=== PATIENT | female | born 1935 | race Caucasian/White ===

== ENCOUNTER → 2017-08-09 | Outpatient (CLI) | payer OTHER ==
[~2017-08-09] MED LIST: AMLO10TA2 PO; ASPI-555 PO; CALC600T12 PO; CHOL200013 PO; CLOB30CR5 TP; CYAN-35 PO; DENO60DI SQ; HYDR25TA PO; IRON PO; LACT1CAP78 PO; LATANOPROST OU; LEVO200T10 PO; MAGN250T10 PO; POTA-9 PO; SIMV20TA6 PO; TUMERIC PO; ZINC PO; [UNRECOGNIZED DRUG - OTHER] PO
== END | disposition home or self-care (01) ==
LOC: OIH 11:38
PROVIDERS: ATTEND Internal Medicine
DX: J44.9 Chronic obstructive pulmonary disease, unspecified (principal); I51.7 Cardiomegaly
CPT/HCPCS: 71046

== ENCOUNTER 2018-09-13 08:48 | Day surgery (SDC) | payer OTHER ==
[~2018-09-13] VITALS: Ht 162.6 cm; Wt 97.5 kg
[2018-09-13] VITALS (7 sets, daily range): BP systolic 104–136; BP diastolic 37–74
[~2018-09-13 08:48] MED LIST changes: -AMLO10TA2 PO; +AMLO10TA7 PO
[2018-09-13] MEDS ORDERED: LIDOCAINE HCL 2% 20ML ONE (10:00)
[2018-09-13] MEDS ORDERED: SODIUM CHLORIDE 0.9% 1000ML 1,000 ML IV ONE (10:03)
== END 2018-09-13 10:55 | disposition home or self-care (01) ==
LOC: DAH 08:48 → ENDO 08:48
PROVIDERS: ATTEND Internal Medicine
DX: K57.30 Diverticulosis of large intestine without perforation or abscess without bleeding (principal); K92.1 Melena; J45.909 Unspecified asthma, uncomplicated; I10 Essential (primary) hypertension; E03.9 Hypothyroidism, unspecified; M81.0 Age-related osteoporosis without current pathological fracture; M06.9 Rheumatoid arthritis, unspecified; Z98.890 Other specified postprocedural states; Z90.710 Acquired absence of both cervix and uterus; Z98.49 Cataract extraction status, unspecified eye; Z79.899 Other long term (current) drug therapy; Z68.37 Body mass index [BMI] 37.0-37.9, adult; D64.9 Anemia, unspecified; K64.9 Unspecified hemorrhoids; G47.33 Obstructive sleep apnea (adult) (pediatric); E66.9 Obesity, unspecified; E07.9 Disorder of thyroid, unspecified
CPT/HCPCS: 45331; 88305; A4606; J3490; J7030

== ENCOUNTER 2019-04-04 08:50 | Emergency (ER) | payer OTHER ==
[~2019-04-04 08:50] MED LIST changes: -HYDR25TA PO; +SIMV-43 PO; -SIMV20TA6 PO
[2019-04-04] MEDS ORDERED: TETRACAINE HCL 0.5% 4 ML OPHTH SOLN ONE (09:36)
[2019-04-04 09:43] LABS: BASOPHILS % (AUTO) 0.6 % (0.0-5.0); EOSINOPHILS % (AUTO) 2.4 % (0.0-8.0); HEMATOCRIT 40.6 % (36-48); LYMPHOCYTES % (AUTO) 24.9 % (21.0-51.0); MEAN CORPUSCULAR HEMOGLOBIN 30.3 pg (27.0-33.0); MEAN CORPUSCULAR HGB CONC 33.8 g/dL (32.0-36.0); MEAN CORPUSCULAR VOLUME 89.7 fL (79-99); MONOCYTES % (AUTO) 6.5 % (3.0-13.0); NEUTROPHILS % (AUTO) 65.6 % (40.0-77.0); PLATELET COUNT (AUTO) 211 K/uL (130-400); RED BLOOD CELL COUNT(AUTO) 4.52 MIL/uL (4.00-5.50); RED CELL DISTRIBUTION WIDTH 20.1 % (11.0-15.5); WHITE BLOOD COUNT (AUTO) 6.6 K/uL (4.8-10.8)
[2019-04-04 09:54] LABS: CREATININE 0.8 mg/dL (0.5-1.5); POTASSIUM 3.7 mmol/L (3.5-5.1)
[2019-04-04 09:59] LABS: ALBUMIN 3.5 g/dL (3.5-5.0); BILIRUBIN,DIRECT 0.1 mg/dL (0.0-0.3); BILIRUBIN,TOTAL 0.5 mg/dL (0.2-1.0); TOTAL PROTEIN, SERUM 7.3 g/dL (6.0-8.3)
[2019-04-04 10:09] LABS: INR 0.99 (0.85-1.15); PARTIAL THROMBOPLASTIN TIME 27.1 SEC (26.3-35.5); PROTHROMBIN TIME 10.4 SEC (9.6-11.6)
[2019-04-04 10:44] LABS: APPEARANCE,URINE Clear (CLEAR); BILIRUBIN,URINE Negative (NEGATIVE); COLOR,URINE Yellow (YELLOW); GLUCOSE, URINE (UA) Negative (NEGATIVE); KETONES,URINE Negative (NEGATIVE); LEUKOCYTE ESTERASE ,URINE Negative (NEGATIVE); NITRATE,URINE Negative (NEGATIVE); OCCULT BLOOD,URINE Negative (NEGATIVE); PH,URINE 5.5 (5.0-8.0); PROTEIN,URINE Negative (NEGATIVE); UROBILINOGEN,URINE 0.2 mg/dL (0.2-1.0)
== END 2019-04-04 12:44 | disposition home or self-care (01) ==
LOC: EDH 08:50
DX: R51 Headache (principal); I10 Essential (primary) hypertension; M06.9 Rheumatoid arthritis, unspecified; M32.9 Systemic lupus erythematosus, unspecified; M81.0 Age-related osteoporosis without current pathological fracture; Z90.710 Acquired absence of both cervix and uterus; Z90.49 Acquired absence of other specified parts of digestive tract; Z98.890 Other specified postprocedural states; Z91.041 Radiographic dye allergy status; Z88.8 Allergy status to other drugs, medicaments and biological substances
CPT/HCPCS: 36415; 70450; 80048; 80076; 81003; 85025; 85610; 85651; 85730; 87804

== ENCOUNTER 2020-12-10 16:14 | Emergency (ER) | payer OTHER ==
[~2020-12-10] VITALS: Ht 162.6 cm; Wt 95.3 kg
[~2020-12-10 16:14] MED LIST changes: +AMLO-258 PO; -AMLO10TA7 PO; -ASPI-555 PO; +ASPI-556 PO; +CALC-1125 PO; -CALC600T12 PO
[2020-12-10 16:34] VITALS: BP 174/75
[2020-12-10 18:30] VITALS: BP 153/77
[2020-12-10] MEDS ORDERED: SOLU-MEDROL 125MG VIAL IM ONE (19:00)
[2020-12-10 19:30] VITALS: BP 164/68
[2020-12-10 20:53] VITALS: BP 148/82
== END 2020-12-10 20:58 | disposition home or self-care (01) ==
LOC: EDH 16:14
DX: S29.012A Strain of muscle and tendon of back wall of thorax, initial encounter (principal); S69.92XA Unspecified injury of left wrist, hand and finger(s), initial encounter; E66.9 Obesity, unspecified; Z79.899 Other long term (current) drug therapy; Z79.82 Long term (current) use of aspirin; Z88.8 Allergy status to other drugs, medicaments and biological substances; Z88.5 Allergy status to narcotic agent; Z91.041 Radiographic dye allergy status; W17.89XA Other fall from one level to another, initial encounter; Y93.89 Activity, other specified; Y92.89 Other specified places as the place of occurrence of the external cause; Y99.8 Other external cause status
CPT/HCPCS: 71045; 73100; 96372; 99285; J2930

== ENCOUNTER 2022-03-08 12:10 | Observation (INO) | payer OTHER ==
[~2022-03-08] VITALS: Ht 165.1 cm; Wt 77.5 kg
[~2022-03-08 12:10] MED LIST changes: +POTA-200 PO; -POTA-9 PO
[2022-03-08 12:40] LABS: BASOPHILS % (AUTO) 0.3 % (0.0-5.0); EOSINOPHILS % (AUTO) 0.4 % (0.0-8.0); HEMATOCRIT 42.2 % (36-48); LYMPHOCYTES % (AUTO) 9.7 % (21.0-51.0); MEAN CORPUSCULAR HEMOGLOBIN 32.1 pg (27.0-33.0); MEAN CORPUSCULAR HGB CONC 33.9 g/dL (32.0-36.0); MEAN CORPUSCULAR VOLUME 94.6 fL (79-99); MONOCYTES % (AUTO) 4.4 % (3.0-13.0); NEUTROPHILS % (AUTO) 84.8 % (40.0-77.0); PLATELET COUNT (AUTO) 224 K/uL (130-400); RED BLOOD CELL COUNT(AUTO) 4.46 MIL/uL (4.00-5.50); RED CELL DISTRIBUTION WIDTH 13.2 % (11.0-15.5); WHITE BLOOD COUNT (AUTO) 11.4 K/uL (4.8-10.8)
[2022-03-08 12:55] LABS: CARBON DIOXIDE 31 mmol/L (21-32); CHLORIDE 101 mmol/L (101-111); CREATININE 0.8 mg/dL (0.5-1.5); GLOMERULAR FILTR. RATE CALC 72 mL/min (>60); GLUCOSE,RANDOM 150 mg/dL (70-105); POTASSIUM 3.3 mmol/L (3.5-5.1); SODIUM SERUM 140 mmol/L (136-145); UREA NITROGEN, BLOOD 21 mg/dL (7-18)
[2022-03-08] MEDS ORDERED: ONDANSETRON 4MG INJ IVP ONE (13:00)
[2022-03-08] MEDS ORDERED: MAG/ALUM/SIMETH 30 ML UDCUP PO ONE (13:00)
[2022-03-08] MEDS ORDERED: FAMOTIDINE 20MG VIAL IV ONE (13:00)
[2022-03-08] MEDS ORDERED: DICYCLOMINE HCL 10 MG/5 ML ML PO ONE (13:00)
[2022-03-08 13:01] LABS: ALANINE AMINOTRANSFERASE 26 U/L (12-78); ALBUMIN 3.8 g/dL (3.5-5.0); ASPARTATE AMINOTRANSFERASE 20 U/L (10-37); LIPASE 63 U/L (114-286); TOTAL PROTEIN, SERUM 7.6 g/dL (6.0-8.3)
[2022-03-08 13:13] LABS: CRP QUANTITATIVE < 2.00 mg/L (0.00-9.0)
[2022-03-08] MEDS ORDERED: POTASSIUM BICARB/CIT AC 25 MEQ TABLET.EFF PO ONE (13:30)
[2022-03-08] MEDS ORDERED: HYDROMORPHONE 0.5 MG SYG (0.5MG/0.5ML) IVP PRN ×2 (14:30)
[2022-03-08] MEDS ORDERED: ACETAMINOPHEN 325 MG TAB PO PRN ×2 (14:30)
[2022-03-08] MEDS ORDERED: ONDANSETRON 4MG INJ IV PRN (14:30)
[2022-03-08] MEDS: FAMOTIDINE 20MG VIAL IV SCH (14:31)
[2022-03-08 14:49] LABS: INR 1.03 (0.85-1.15); PROTHROMBIN TIME 11.2 SEC (9.6-11.6)
[2022-03-08 14:50] LABS: PARTIAL THROMBOPLASTIN TIME 27.9 SEC (26.3-35.5)
[2022-03-08 14:51] LABS: PHOSPHORUS 3.4 mg/dL (2.5-4.9)
[2022-03-08] MEDS: 0.9%NACL 1000ML 1,000 ML IV SCH (15:27)
[2022-03-08 16:40] VITALS: BP 130/53
[2022-03-08] MEDS ORDERED: POTASSIUM CHLORIDE 20MEQ/100ML 100 ML IV PRN ×2 (18:30→20:00)
[2022-03-08] MEDS ORDERED: LIDOCAINE HCL-MPF 1% 2ML VIAL IV PRN ×2 (18:30→20:00)
[2022-03-08] MEDS ORDERED: KCL 20 MEQ ERTAB PO ONE (19:59)
[2022-03-08] MEDS ORDERED: POTASSIUM CHLORIDE 10% ELIXIR 20 MEQ/15 ML UDCUP PO PRN (20:00)
[2022-03-08 20:26] LABS: APPEARANCE,URINE CLEAR (CLEAR); BILIRUBIN,URINE NEGATIVE (NEGATIVE); COLOR,URINE LIGHT-YELLOW (YELLOW); GLUCOSE, URINE (UA) NEGATIVE (NEGATIVE); KETONES,URINE NEGATIVE (NEGATIVE); LEUKOCYTE ESTERASE ,URINE 500 Leu/uL (NEGATIVE); NITRATE,URINE NEGATIVE (NEGATIVE); OCCULT BLOOD,URINE NEGATIVE (NEGATIVE); PH,URINE 6.5 (5.0-8.0); PROTEIN,URINE NEGATIVE (NEGATIVE); UROBILINOGEN,URINE 0.2 mg/dL (0.2-1.0)
[2022-03-08 20:38] VITALS: BP 123/49
[2022-03-08 20:57] LABS: MUCUS,URINE RARE LPF (None Seen); SQUAMOUS EPITHELIAL CELL,UR RARE /HPF (0-2); WBC,URINE 26-50 /HPF (0-1); YEAST,URINE BUDDING FEW /HPF (None Seen)
[2022-03-08] MEDS ORDERED: ZOSYN 3.375GM+NS 50ML 50 ML IV SCH ×2 (21:00)
[2022-03-08] MEDS ORDERED: HYDR12.54 PO (22:58)
[2022-03-08] MEDS ORDERED: ATOR40TA71 PO (22:58)
[2022-03-08] MEDS ORDERED: LEVO150T11 PO (22:58)
[2022-03-08] MEDS ORDERED: TURM1CAP PO (22:58)
[2022-03-08] MEDS ORDERED: LATA7.5D OU (22:58)
[2022-03-08] MEDS ORDERED: VITA-164 PO (22:58)
[2022-03-08] MEDS ORDERED: CRANBERRY D MANNOSE PO (22:58)
[2022-03-08] MEDS ORDERED: AMLO-257 PO (22:58)
[2022-03-08] MEDS ORDERED: CALC-1220 PO (22:58)
[2022-03-08] MEDS ORDERED: FERR-72 PO (22:58)
[2022-03-08] MEDS ORDERED: CARB10DR2 OU (22:58)
[2022-03-08] MEDS: KCL 20 MEQ ERTAB PO PRN (23:28)
[2022-03-09 00:19] VITALS: BP 126/54
[2022-03-09] MEDS: KCL 20 MEQ ERTAB PO PRN ×2 (01:24→05:10)
[2022-03-09 03:33] VITALS: BP 123/57
[2022-03-09 04:36] LABS: CREATININE 0.8 mg/dL (0.5-1.5); MAGNESIUM 2.1 mg/dL (1.80-2.40); POTASSIUM 3.7 mmol/L (3.5-5.1)
[2022-03-09] MEDS: 0.9%NACL 1000ML 1,000 ML IV SCH ×2 (05:10→09:28)
[2022-03-09 07:30] VITALS: BP 119/55
[2022-03-09] MEDS ORDERED: ENOXAPARIN SODIUM 40 MG/0.4 ML SYRINGE SQ SCH (09:00)
[2022-03-09] MEDS: FAMOTIDINE 20MG VIAL IV SCH (09:28)
[2022-03-09 11:00] VITALS: BP 135/55
[2022-03-09] MEDS ORDERED: ATORVASTATIN 40 MG TABLET PO SCH (21:00)
[2022-03-09] MEDS ORDERED: LATANOPROST 2.5 ML DROPS OU SCH (21:00)
[2022-03-09] MEDS ORDERED: ARTIFICAL TEARS SOL 15 ML OU SCH (21:00)
[2022-03-10] MEDS ORDERED: LEVOTHYROXINE 150 MCG TABLET PO SCH (07:30)
[2022-03-10] MEDS ORDERED: POTASSIUM CHLORIDE 10MEQ SR TAB PO SCH (09:00)
[2022-03-10] MEDS ORDERED: ASPIRIN 81 MG EC TAB PO SCH (09:00)
== END 2022-03-09 17:45 | disposition home or self-care (01) ==
LOC: EDH 12:10 → EDBD 12:10 → EDHIP 14:17 → INTOOBSV 14:17 → 4CH 16:51
PROVIDERS: ADMIT Internal Medicine; ATTEND Internal Medicine
DX: K56.600 Partial intestinal obstruction, unspecified as to cause (principal); Z20.822 Contact with and (suspected) exposure to COVID-19; D72.829 Elevated white blood cell count, unspecified; K57.90 Diverticulosis of intestine, part unspecified, without perforation or abscess without bleeding; J45.909 Unspecified asthma, uncomplicated; E11.65 Type 2 diabetes mellitus with hyperglycemia; E87.6 Hypokalemia; E89.0 Postprocedural hypothyroidism; I10 Essential (primary) hypertension; G43.909 Migraine, unspecified, not intractable, without status migrainosus; K21.9 Gastro-esophageal reflux disease without esophagitis; M06.9 Rheumatoid arthritis, unspecified; M32.9 Systemic lupus erythematosus, unspecified; M35.00 Sjogren syndrome, unspecified; M41.9 Scoliosis, unspecified; M45.9 Ankylosing spondylitis of unspecified sites in spine; Z90.710 Acquired absence of both cervix and uterus; M81.0 Age-related osteoporosis without current pathological fracture; Z79.82 Long term (current) use of aspirin; Z88.0 Allergy status to penicillin; Z79.899 Other long term (current) drug therapy; Z86.73 Personal history of transient ischemic attack (TIA), and cerebral infarction without residual deficits
CPT/HCPCS: 96374; 96361 ×2; 96375; 99285; 83735 ×2; 84100; 84484; 80053; 83690; 85025; 85610; 85730; 87077; 87088; 87186; 86140; 81001; 36415 ×2; 87635; 71045; 74176; 93005; 96376; 96372; 84443; 83540; 83550; 80048; 82306; 74018; C9803; J3490 ×2; J2405; G0378 ×6; J7030; J1650; J3480

== ENCOUNTER → 2022-05-10 | Outpatient (CLI) | payer OTHER ==
[~2022-05-10] MED LIST changes: +AMLO-257 PO; -AMLO-258 PO; +ATOR40TA71 PO; -CALC-1125 PO; +CALC-1220 PO; +CARB10DR2 OU; -CHOL200013 PO; -CLOB30CR5 TP; +CRANBERRY D MANNOSE PO; -CYAN-35 PO; -DENO60DI SQ; +FERR-72 PO; +HYDR12.54 PO; +IOHEXOL 350 MG/ML 100ML INFUS..BTL IV ONE; -IRON PO; -LACT1CAP78 PO; +LATA7.5D OU; -LATANOPROST OU; +LEVO150T11 PO; -LEVO200T10 PO; -MAGN250T10 PO; -SIMV-43 PO; -TUMERIC PO; +TURM1CAP PO; -[UNRECOGNIZED DRUG - OTHER] PO
== END | disposition home or self-care (01) ==
LOC: RAH 09:23
PROVIDERS: ATTEND Urology
DX: K57.30 Diverticulosis of large intestine without perforation or abscess without bleeding (principal); N39.0 Urinary tract infection, site not specified
CPT/HCPCS: 74178; Q9967

== ENCOUNTER → 2023-01-30 | Outpatient (CLI) | payer OTHER ==
[~2023-01-30] MED LIST changes: -IOHEXOL 350 MG/ML 100ML INFUS..BTL IV ONE
== END | disposition home or self-care (01) ==
LOC: OIH 09:30
PROVIDERS: ATTEND Internal Medicine Cardiovascular Disease
DX: Z13.6 Encounter for screening for cardiovascular disorders (principal); R93.1 Abnormal findings on diagnostic imaging of heart and coronary circulation
CPT/HCPCS: 75571